=== PATIENT | female | born 1985 | race Caucasian/White ===

== ENCOUNTER → 2017-12-29 18:52 | Outpatient (CLI) | payer SELFPAY | PROVIDERS: Family Provider Family Medicine; PCP Family Medicine; Visit Provider Obstetrics & Gynecology | DX: Z34.80 Encounter for supervision of other normal pregnancy, unspecified trimester (principal) | CPT/HCPCS: 87086; 87088 ==

== ENCOUNTER → 2018-01-13 15:18 | Outpatient (CLI) | payer SELFPAY ==
[2018-01-13 16:26] LABS: Absolute Lymphocyte Count 1.51 X10^3/ul (0.83-4.51); Absolute Neutrophil Count 5.7 X10^3/uL (2.0-7.7); Basophil# 0.03 X10^3/uL; Basophil% 0.4 % (0-1); Eosinophil# 0.05 X10^3/uL; Eosinophils% 0.6 % (0-5); Hematocrit 38.8 % (37-47); Hemoglobin 13.5 g/dl (12.0-15.0); Lymphocyte # 1.51 X10^3/ul (4.0); Lymphocyte % 18.1 % (19-41); Mean Corp Hgb Conc 34.8 g/gl (32-36); Mean Corpuscular Hgb 30.3 pg (27.0-32.0); Mean Corpuscular Volume 87.2 fL (81-99); Mean Platelet Vol. 9.8 fl (6.2-12.0); Neutrophil # 5.72 X10^3/uL (2.7-7.7); Neutrophil % 68.8 % (47-70); Platelet Count 309 K/mm3 (150-450); RBC Distribution Width CV 11.6 % (11.6-14.6); RBC Distribution Width SD 36.5 fl (35.1-43.9); Red Blood Count 4.45 M/mm3 (4.2-5.4); White Blood Count 8.3 K/mm3 (4.4-11.0)
[2018-01-13 16:27] LABS: POSITIVE COUNT NO; POSITIVE DIFFERENTIAL NO; POSITIVE MORPHOLOGY NO
[2018-01-13 21:06] LABS: Chlamydia Trachomatis by PCR Negative (Negative); Neisserai gonorrhoeae by PCR Negative (Negative); Probe Check PASS; Sample Adequacy Control PASS; Specimen Processing Control PASS
[2018-01-14 03:45] LABS: Rapid Plasmin Reagin (RPR) NONREACTIVE (NONREACTIVE)
[2018-01-14 10:21] LABS: HIV - WCH Non-Reactive (Nonreactive); Rubella IgG 108.8 IU/mL
[2018-01-15 08:31] LABS: HEPATITIS B SURFACE AG Negative (Negative)
== END ==
PROVIDERS: Family Provider Family Medicine; PCP Family Medicine; Visit Provider Obstetrics & Gynecology
DX: Z34.90 Encounter for supervision of normal pregnancy, unspecified, unspecified trimester (principal)
CPT/HCPCS: 36415; 85025; 86592; 86703; 86762; 86850; 86900; 87340; 87491; 87591

== ENCOUNTER → 2018-04-07 08:34 | Outpatient (CLI) | payer SELFPAY ==
--- NOTE | 2018-04-07 08:44 | US_ITS ---
STUDY: SECOND AND THIRD TRIMESTER OBSTETRICAL ULTRASOUND REASON FOR EXAM: Female, 32 years old. Routine survey. LMP: November 07, 2017. TECHNIQUE: Transabdominal PRIOR ULTRASOUND: None. FINDINGS: There is a single intrauterine fetus. The fetus is in a breech presentation. There is demonstrated cardiac activity with a heart rate of 147 bpm. There is a normal amniotic fluid volume. The largest amniotic fluid pocket measures 6.6 cm. The amniotic fluid index (GREGORIO) is normal. The placenta is posterior in location and is not low lying. There are Grade 0 placental changes. The cervix measures 4.2 cm in length. The adnexal regions are not visualized. BIOMETRY: BPD: 4.9 cm: 20 weeks, 6 days HC: 18.4 cm: 20 weeks, 6 days AC: 16.2 cm: 21 weeks, 2 days FL: 3.7 cm: 22 weeks, 0 days CI: 74% FL/BPD: 77% FL/HC: FL/AC: 23% HC/AC: 1.14 age by current US: 21 weeks, 2 days. CARMINA by current US: August 16, 2018. Estimated weight: 425 grams, +/- 62 grams, 38 %. Age by LMP: 21 weeks, 4 days. CARMINA by LMP: August 14, 2018. ANATOMY: Gender: Male Cranium: Normal lateral ventricles. Normal choroid plexus. Normal cerebellum. Normal cisterna magna. Normal face, nose and lips. Chest: Normal 4-chamber heart. Abdomen/Pelvis: Normal diaphragm. Normal stomach. Normal abdominal wall. Normal cord insertion. Normal 3 vessel cord. Normal kidneys. Normal bladder. Spine: Normal cervical spine. Normal thoracic spine. Normal lumbar spine. Normal sacrum. Extremities: Normal bilateral upper extremities. Normal bilateral lower extremities. US/OB Anatomy Scan IMPRESSION: Single live intrauterine gestation with a mean gestational age of 21 weeks and 2 days. Electronically Signed: Lincoln Tucker MD at 14:56 EDT Tel [phone], Service support ,
== END ==
PROVIDERS: Family Provider Family Medicine; PCP Family Medicine; Visit Provider Obstetrics & Gynecology
DX: O32.1XX0 Maternal care for breech presentation, not applicable or unspecified (principal); Z3A.21 21 weeks gestation of pregnancy
CPT/HCPCS: 76805

== ENCOUNTER → 2018-07-20 13:19 | Outpatient (CLI) | payer SELFPAY ==
[2018-07-20 16:18] LABS: Group B Strep DNA By PCR Negative (Negative); Internal Control PASS; Probe Check PASS; Specimen Processing Control PASS
== END ==
PROVIDERS: Referring Provider Obstetrics & Gynecology; Visit Provider Obstetrics & Gynecology
DX: Z34.90 Encounter for supervision of normal pregnancy, unspecified, unspecified trimester (principal)
CPT/HCPCS: 87081; 87653

== ENCOUNTER 2018-08-07 01:40 | Inpatient (IN) | payer SELFPAY ==
[2018-08-07] MEDS: Lactated Ringers 1,000 ML 50 ML IV (02:00)
[2018-08-07 02:02] VITALS: BMI 30.7
[2018-08-07 02:25] LABS: Hematocrit 33.6 % (37-47); Hemoglobin 10.8 g/dl (12.0-15.0); Mean Corp Hgb Conc 32.1 g/gl (32-36); Mean Corpuscular Hgb 27.7 pg (27.0-32.0); Mean Corpuscular Volume 86.2 fL (81-99); Mean Platelet Vol. 10.2 fl (6.2-12.0); Platelet Count 295 K/mm3 (150-450); RBC Distribution Width CV 12.2 % (11.6-14.6); White Blood Count 8.5 K/mm3 (4.4-11.0)
[2018-08-07 02:26] LABS: Scan Indicated on CBC? Y/N NO
--- NOTE | 2018-08-07 02:29 | PCM.HP.OB ---
- Problem List (1) Abnormal glucose affecting Status: Acute Comment: Normal 3hr GTT-Scanned to chart. (2) Status: Acute Qualifiers: (3) History of miscarriage Status: Acute (4) Supervision of normal , antepartum Status: Acute Qualifiers: Comment: PRR CARMINA 09/02/18 Boy PC Margaret Som History Date of Admission: 08/07/18 Final CARMINA: 08/14/18 Gestational age: 39 Weeks and 0 Days History of this : This is a 33 year-old, at 39 weeks gestational age presents IAL. she is 7 cm dilated and denies any vb admits good fm and has had regular ctx for the last few hours. she has had an uncomplicated prengnacy. Surgical History: Surgical History (Last Reviewed 07/27/18 @ 09:51 by Carol Lubin) History of hysteroscopy Z98.890 Allergies coconut oil Allergy (Mild, Verified 08/07/18 02:03) rash ferrous fumarate [From Prenatabs FA] Allergy (Verified 08/07/18 02:03) Rash folic acid [From Prenatabs FA] Allergy (Verified 08/07/18 02:03) Rash vitamins with calcium no.78 [From Prenatabs FA] Allergy (Verified 08/07/18 02:03) Rash Smoking Status: Never smoker Alcohol: None Number of Fetus(es): 1 Heart Tracins moderate variability reactive no decels cat I tracing TOCO Analysis: q 2-3 History Past Pregnancies: Past Pregnancies Delivery Date Name GA/Weeks Outcome Route Weight Infant Gender Labor Length Anesthesia Delivery Location Provider FOB Margaret 39 uncomplicated F none [facility] Labs: Mom's Labs & Results 08/07/18 08/07/18 02:00 02:00 WBC 8.5 RBC 3.90 L Hgb 10.8 L Hct 33.6 L MCV 86.2 MCH 27.7 MCHC 32.1 RDW 12.2 RDW Differential 37.0 Plt Count 295 MPV 10.2 Blood Type Pending Antibody Screen Pending Course Did the patient receive Yes care? Labs Blood Type: O RH: POSITIVE RPR/VDRL/Syphilis Nonreactive Rubella status Immune HbSAg Negative Date Done: 01/13/18 Chlamydia Negative Gonorrhea Negative HIV/AIDS Non-Reactive Group B Strep: Negative Social History Hx Smoking No Smoking Status Never smoker How long have you used pt denies substances (years)? Expected Infant Delivery Method: Spontaneous Vaginal Review of Systems Constitutional: Denies: Fever, Malaise Eyes: Denies: Blurred vision, Vision Change HEENT: Denies: Head Aches, Visual Changes Cardiovascular: Denies: Chest Pain, Palpitations Respiratory: Denies: Cough, Shortness of Breath, Wheezing Gastrointestinal: Denies: Abdominal Pain, Diarrhea, Nausea, Vomiting Genitourinary: Denies: Dysuria, Hematuria Musculoskeletal: Denies: Joint Pain, Muscle pain Skin: Denies: Lesions, Rash Neurological: Denies: Blurred vision, Focal weakness, Headaches Psychiatric: Denies: Anxiety, Depression Endocrine: Denies: Heat/ Cold Intolerance Hematologic/ Lymphatic: Denies: Easy Bruising, Easy Bleeding Physical Exam General: Alert, Cooperative, No apparent distress HEENT: Atraumatic, Normocephalic. Negative for: Thyromegaly, Lymphadenopathy Cardiovascular: Regular rate Lungs: Normal air movement Abdomen: Soft, Non Tender, Gravid Neurological: Deep Tendon Reflexes 2+/4 and Symmetrical, Neuro grossly intact. Negative for: Clonus [employer]PER[employer]OR: Normal external genitalia. Negative for: Vulvar lesions Estimated gestational size: Appropriate for gestational size Presentation: Cephalic Cervix Dilation (cm): 7 Station: -1 Effacement (%): 80 Assessment/Plan All Active Problems (Last Reviewed 08/03/18 @ 09:28 by Staci Aranda) Abnormal glucose affecting (Acute) (Acute) History of miscarriage (Acute) Supervision of normal , antepartum (Acute) This is a 33 year-old, at 39 weeks gestational age presents IAL Patient presents IAL, plan expectant management for , pitocin/AROM clear fluid. Pain management: minimal intervention. GBS negative. Management of any complications: none I have reviewed the [facility] and made any clinically relevant updates.
--- NOTE | 2018-08-07 02:33 | HP.PCM_ITS ---
- Problem List (1) Abnormal glucose affecting Status: Acute Comment: Normal 3hr GTT-Scanned to chart. (2) Status: Acute Qualifiers: (3) History of miscarriage Status: Acute (4) Supervision of normal , antepartum Status: Acute Qualifiers: Comment: PRR CARMINA 09/02/18 Boy PC Margaret Som History Date of Admission: 08/07/18 Final CARMINA: 08/14/18 Gestational age: 39 Weeks and 0 Days History of this : This is a 33 year-old, at 39 weeks gestational age presents IAL. she is 7 cm dilated and denies any vb admits good fm and has had regular ctx for the last few hours. she has had an uncomplicated prengnacy. Surgical History: Surgical History (Last Reviewed 07/27/18 @ 09:51 by Carol Lubin) History of hysteroscopy Z98.890 Allergies coconut oil Allergy (Mild, Verified 08/07/18 02:03) rash ferrous fumarate [From Prenatabs FA] Allergy (Verified 08/07/18 02:03) Rash folic acid [From Prenatabs FA] Allergy (Verified 08/07/18 02:03) Rash vitamins with calcium no.78 [From Prenatabs FA] Allergy (Verified 08/07/18 02:03) Rash Smoking Status: Never smoker Alcohol: None Number of Fetus(es): 1 Heart Tracins moderate variability reactive no decels cat I tracing TOCO Analysis: q 2-3 History Past Pregnancies: Past Pregnancies Delivery Date Name GA/Weeks Outcome Route Weight Infant Gender Labor Length Anesthesia Delivery Location Provider FOB Margaret 39 uncomplicated F none [facility] Labs: Mom's Labs & Results 08/07/18 08/07/18 02:00 02:00 WBC 8.5 RBC 3.90 L Hgb 10.8 L Hct 33.6 L MCV 86.2 MCH 27.7 MCHC 32.1 RDW 12.2 RDW Differential 37.0 Plt Count 295 MPV 10.2 Blood Type Pending Antibody Screen Pending Course Did the patient receive Yes care? Labs Blood Type: O RH: POSITIVE RPR/VDRL/Syphilis Nonreactive Rubella status Immune HbSAg Negative Date Done: 01/13/18 Chlamydia Negative Gonorrhea Negative HIV/AIDS Non-Reactive Group B Strep: Negative Social History Hx Smoking No Smoking Status Never smoker How long have you used pt denies substances (years)? Expected Infant Delivery Method: Spontaneous Vaginal Review of Systems Constitutional: Denies: Fever, Malaise Eyes: Denies: Blurred vision, Vision Change HEENT: Denies: Head Aches, Visual Changes Cardiovascular: Denies: Chest Pain, Palpitations Respiratory: Denies: Cough, Shortness of Breath, Wheezing Gastrointestinal: Denies: Abdominal Pain, Diarrhea, Nausea, Vomiting Genitourinary: Denies: Dysuria, Hematuria Musculoskeletal: Denies: Joint Pain, Muscle pain Skin: Denies: Lesions, Rash Neurological: Denies: Blurred vision, Focal weakness, Headaches Psychiatric: Denies: Anxiety, Depression Endocrine: Denies: Heat/ Cold Intolerance Hematologic/ Lymphatic: Denies: Easy Bruising, Easy Bleeding Physical Exam General: Alert, Cooperative, No apparent distress HEENT: Atraumatic, Normocephalic. Negative for: Thyromegaly, Lymphadenopathy Cardiovascular: Regular rate Lungs: Normal air movement Abdomen: Soft, Non Tender, Gravid Neurological: Deep Tendon Reflexes 2+/4 and Symmetrical, Neuro grossly intact. Negative for: Clonus [employer]GER: Normal external genitalia. Negative for: Vulvar lesions Estimated gestational size: Appropriate for gestational size Presentation: Cephalic Cervix Dilation (cm): 7 Station: -1 Effacement (%): 80 Assessment/Plan All Active Problems (Last Reviewed 08/03/18 @ 09:28 by Staci Aranda) Abnormal glucose affecting (Acute) (Acute) History of miscarriage (Acute) Supervision of normal , antepartum (Acute) This is a 33 year-old, at 39 weeks gestational age presents IAL Patient presents IAL, plan expectant management for , pitocin/AROM clear fluid. Pain management: minimal intervention. GBS negative. Management of any complications: none I have reviewed the [facility] and made any clinically relevant updates.
[2018-08-07] MEDS: Ondansetron 4 MG/2 ML Vial IV (02:51)
[2018-08-07] MEDS: Oxytocin 30 units/NS 500 ml 30 UNITS/500 ML IV.SOLN 334 UNITS IV (03:43)
--- NOTE | 2018-08-07 03:55 | PCM.OB.VAG ---
- Problem List (1) Abnormal glucose affecting Status: Acute Comment: Normal 3hr GTT-Scanned to chart. (2) Status: Acute Qualifiers: (3) History of miscarriage Status: Acute (4) Supervision of normal , antepartum Status: Acute Qualifiers: Comment: PRR CARMINA 09/02/18 Boy PC Margaret Som Vaginal Delivery Maternal Presentation: Active Labor 33-year-old at 39 weeks presents in active labor Amniotic Membrane Rupture Type: Artificial Amniotic Fluid Description: Clear Final CARMINA: 08/14/18 Gestational age: 39 Weeks and 0 Days Date of Procedure: 08/07/18 Pre-Operative Diagnosis: In active labor Post-Operative Diagnosis: Same Surgery/ Procedure Performed: Spontaneous Vaginal Delivery Type of Anesthesia: Pudendal block with 1% lidocaine Description of Procedure: Patient began pushing and there was abrupt change in station from a +1-+5 station with one contraction and she delivered the head in the DAVID presentation. The head was delivered atraumatically and an audible pop was heard and then a loose nuchal cord x2 was identified and easily reduced over the 's head. The anterior and posterior shoulders delivered without complication followed by the rest of the infant and the infant was placed on the maternal abdomen. Delayed cord clamping was employed for approximately 60 seconds. Cord was clamped and cut and gentle traction was applied to the cord and the placenta delivered spontaneously immediately following it was noted to be intact with three-vessel cord. The perineum and vagina were inspected and noted to have no laceration. EBL was 200 cc. Patient and infant tolerated delivery well. Due to the audible pop heard after delivery of the head I recommended that the shoulders be checked and some crepitus was noted over the left side. It was felt that due to the quick descent there was a clavicular fracture induced by the normal labor forces with the patient pushing as noted by additional bruising along the left side of the infant's face that lined up with the location of the shoulder. It was discussed with the patient the liability claims adjuster would evaluate expectant management would be employed Presentation: DAVID Placental Delivery Description: Spontaneous Placenta Disposition: [facility] Cord Vessel Description: 3 Vessels Cord Entanglement: Around neck x 2, loose Estimated Blood Loss: 200 A gender: Male Episiotomy Description: None Laceration: None Medications given after delivery: IV Pitocin Complications: None
[2018-08-07] MEDS: Oxytocin 30 units/NS 500 ml 30 UNITS/500 ML IV.SOLN 167 UNITS IV (04:13)
[2018-08-07] MEDS: Naproxen 250 MG Tablet PO ×3 (04:56→21:31)
[2018-08-07] MEDS: 0.9% Saline Lock 10 ML Syringe IV (05:00)
[2018-08-07 07:45] VITALS: BP 103/60; PULSE 71; RESP 16; TEMP 36.8; O2SAT 99
[2018-08-07 12:00] VITALS: BP 98/62; PULSE 74; RESP 16; TEMP 37.1; O2SAT 97
[2018-08-07] MEDS: Senna/Docusate Sodium 1 Tablet PO (13:07)
[2018-08-07 16:20] VITALS: BP 102/62; PULSE 80; TEMP 37.2; O2SAT 95
[2018-08-07 19:43] VITALS: BP 102/57; PULSE 70; RESP 18; TEMP 37.1; O2SAT 98
[2018-08-08 00:14] VITALS: BP 95/52; PULSE 67; RESP 18; TEMP 36.8
[2018-08-08 04:00] VITALS: BP 95/55; PULSE 69; RESP 18; TEMP 36.8
--- NOTE | 2018-08-08 07:53 | PCM.PN.OB ---
Subjective: Doing well. No CP, SOB. Plans home today - Physical Exam General: Alert, Oriented x3 Abdomen: Soft, Non Tender, - - FF below U Vital Signs Temp Pulse Resp BP Pulse Ox 98.2 F 69 18 95/55 L 98 08/08/18 04:00 08/08/18 04:00 08/08/18 04:00 08/08/18 04:00 08/07/18 19:43 Oxygen Delivery Method Room Air Weight: 196 lb 6.91 oz Body Mass Index (BMI) 30.7 Intake and Output for Last 24 Hours 08/07/18 08/07/18 08/08/18 00:59 23:59 23:59 Intake Total Balance Medical Necessity - Tobacco Use Smoking Status: Never smoker Assessment/Plan All Active Problems (Last Reviewed 08/03/18 @ 09:28 by Staci Aranda) Abnormal glucose affecting (Acute) (Acute) History of miscarriage (Acute) Supervision of normal , antepartum (Acute) PPD #1: Routine care. . Pain controlled. Home today
--- NOTE | 2018-08-08 07:55 | PCM.DCVAG ---
Additional Instructions: If you experience any of the following, contact your healthcare provider. Bleeding that soaks a pad every hour for 2 hours Fever 100.4 or higher Unrelieved incision or abdominal pain Swelling, redness, discharge or bleeding from your incision or episiotomy site Your incision begins to separate Problems urinating (including inability to urinate or burning while urinating). Visual changes Severe headache Flu-like symptoms Pain or redness in one of both of your breasts Pain, warmth, tenderness or swelling in your legs, especially the calf area Frequent nausea and vomiting Symptoms of depression or anxiety If you experience any of the following, call 911 or go to the nearest Emergency Room. Chest pain Problems breathing Seizure activity Partial or complete paralysis of a body part, slurred speech, weakness or drooping of the face, or a sudden inability to walk or hold your balance Allergies/Adverse Reactions: Allergies coconut oil Allergy (Mild, Verified 08/07/18 02:03) rash ferrous fumarate [From Prenatabs FA] Allergy (Verified 08/07/18 02:03) Rash folic acid [From Prenatabs FA] Allergy (Verified 08/07/18 02:03) Rash vitamins with calcium no.78 [From Prenatabs FA] Allergy (Verified 08/07/18 02:03) Rash Primary Care Physician: Troy Mata MD [Primary Care Provider] - Test Results: Test results from this visit will be discussed in further detail at your follow-up appointment, if applicable.
--- NOTE | 2018-08-08 07:57 | DCINST_ITS ---
Additional Instructions: If you experience any of the following, contact your healthcare provider. * Bleeding that soaks a pad every hour for 2 hours * Fever 100.4 or higher * Unrelieved incision or abdominal pain * Swelling, redness, discharge or bleeding from your incision or episiotomy site * Your incision begins to separate * Problems urinating (including inability to urinate or burning while urinating). * Visual changes * Severe headache * Flu-like symptoms * Pain or redness in one of both of your breasts * Pain, warmth, tenderness or swelling in your legs, especially the calf area * Frequent nausea and vomiting * Symptoms of depression or anxiety If you experience any of the following, call 911 or go to the nearest Emergency Room. * Chest pain * Problems breathing * Seizure activity * Partial or complete paralysis of a body part, slurred speech, weakness or drooping of the face, or a sudden inability to walk or hold your balance Allergies/Adverse Reactions: Allergies coconut oil Allergy (Mild, Verified 08/07/18 02:03) rash ferrous fumarate [From Prenatabs FA] Allergy (Verified 08/07/18 02:03) Rash folic acid [From Prenatabs FA] Allergy (Verified 08/07/18 02:03) Rash vitamins with calcium no.78 [From Prenatabs FA] Allergy (Verified 08/07/18 02:03) Rash Primary Care Physician: Troy Mata MD [Primary Care Provider] - Test Results: Test results from this visit will be discussed in further detail at your follow- up appointment, if applicable.
[2018-08-08] MEDS: Naproxen 250 MG Tablet PO (08:02)
[2018-08-08 08:07] VITALS: BP 104/65; PULSE 81; RESP 16; TEMP 36.7
[2018-08-08] MEDS: Senna/Docusate Sodium 1 Tablet PO (09:22)
[2018-08-08 14:20] VITALS: BP 103/50; PULSE 76; RESP 16; TEMP 36.8
== END 2018-08-08 16:30 | disposition home or self-care (01) | DRG 807 ==
PROVIDERS: Admitting Provider Obstetrics & Gynecology; Family Provider Family Medicine; PCP Family Medicine; Referring Provider Obstetrics & Gynecology; Visit Provider Obstetrics & Gynecology
DX: O26.23 Pregnancy care for patient with recurrent pregnancy loss, third trimester (principal); Z37.0 Single live birth; O75.89 Other specified complications of labor and delivery; O69.81X0 Labor and delivery complicated by cord around neck, without compression, not applicable or unspecified; Z3A.39 39 weeks gestation of pregnancy
CPT/HCPCS: 59025; 59050; 85027; 86850; 86900; 99218; J7120; A4216; G0378; J2405

== ENCOUNTER → 2020-08-28 | Outpatient (CLI) | payer SELFPAY ==
[2020-08-28 09:38] VITALS: BMI 28.7
[2020-09-03 17:29] LABS: HPV APTIMA, High Risk Negative (Negative)
== END | disposition home or self-care (01) ==
LOC: LABSPEC 13:27
PROVIDERS: PCP Internal Medicine; Referring Provider Nurse Practitioner Women's Health; Visit Provider Nurse Practitioner Women's Health
DX: Z12.4 Encounter for screening for malignant neoplasm of cervix (principal)
CPT/HCPCS: 87624; 88175; G0145

== ENCOUNTER → 2020-09-04 11:06 | Outpatient (CLI) | payer SELFPAY ==
[2020-08-28 09:38] VITALS: BMI 28.7
--- NOTE | 2020-09-04 11:09 | US_ITS ---
STUDY: ULTRASOUND OF THE FEMALE PELVIS - COMPLETE REASON FOR EXAM: Female, 35 years old. AUB- SPOTTING BETWEEN PERIODS, GENERALIZE PELVIC PAIN LMP: 08/18/2020. TECHNIQUE: Transabdominal and Transvaginal TECHNICAL QUALITY: Adequate. COMPARISON: Comparison is made with prior study dated 04/07/2018. FINDINGS: The uterus is anteverted and is in a midline position. The uterus measures 8.2 cm x 6.1 cm x 4.7 cm. Normal uterine cervix. The endometrium measures 12 mm in thickness, and is heterogeneous (striated). There is no demonstrated endometrial mass. There is no demonstrated myometrial mass. I.U.D. - The patient does not have an I.U.D. The right ovary is visualized. The right ovary measures 4.2 cm x 2.47 x 2.7 cm. There is a 2.2 cm x 2.3 cm x 2.2 cm complex cyst in the right ovary. There is no visualized right adnexal mass or complex lesion. There is increased vascularity to the right ovary. Follow-up is recommended. The left ovary is visualized. The left ovary measures 2.7 cm x 2.2 cm x 1.7 cm. There is no left ovarian cyst or ovarian mass. There is no visualized left adnexal mass or complex lesion. There is normal arterial and normal venous vascularity. There is minimal fluid in the cul-de-sac. The pre void volume of the bladder was 425 ml. US/Pelvic (Non ) IMPRESSION: 2.2 cm x 2.3 cm x 2.2 cm complex cyst in the right ovary. Increased peripheral vascularity. Follow-up sonogram is recommended. Electronically Signed: Lincoln Tucker, at 13:14 EST , Service support ,
--- NOTE | 2020-09-04 11:09 | US_ITS ---
STUDY: ULTRASOUND OF THE FEMALE PELVIS - COMPLETE REASON FOR EXAM: Female, 35 years old. AUB- SPOTTING BETWEEN PERIODS, GENERALIZE PELVIC PAIN LMP: 08/18/2020. TECHNIQUE: Transabdominal and Transvaginal TECHNICAL QUALITY: Adequate. COMPARISON: Comparison is made with prior study dated 04/07/2018. FINDINGS: The uterus is anteverted and is in a midline position. The uterus measures 8.2 cm x 6.1 cm x 4.7 cm. Normal uterine cervix. The endometrium measures 12 mm in thickness, and is heterogeneous (striated). There is no demonstrated endometrial mass. There is no demonstrated myometrial mass. I.U.D. - The patient does not have an I.U.D. The right ovary is visualized. The right ovary measures 4.2 cm x 2.47 x 2.7 cm. There is a 2.2 cm x 2.3 cm x 2.2 cm complex cyst in the right ovary. There is no visualized right adnexal mass or complex lesion. There is increased vascularity to the right ovary. Follow-up is recommended. The left ovary is visualized. The left ovary measures 2.7 cm x 2.2 cm x 1.7 cm. There is no left ovarian cyst or ovarian mass. There is no visualized left adnexal mass or complex lesion. There is normal arterial and normal venous vascularity. There is minimal fluid in the cul-de-sac. The pre void volume of the bladder was 425 ml. US/Transvaginal Non- IMPRESSION: 2.2 cm x 2.3 cm x 2.2 cm complex cyst in the right ovary. Increased peripheral vascularity. Follow-up sonogram is recommended. Electronically Signed: Lincoln Tucker, at 13:14 EST , Service support ,
== END ==
PROVIDERS: PCP Internal Medicine; Referring Provider Nurse Practitioner Women's Health; Visit Provider Nurse Practitioner Women's Health
DX: N93.9 Abnormal uterine and vaginal bleeding, unspecified (principal); R10.2 Pelvic and perineal pain
CPT/HCPCS: 76830; 76856; 93976

== ENCOUNTER → 2020-10-30 10:01 | Outpatient (CLI) | payer SELFPAY ==
[2020-08-28 09:38] VITALS: BMI 28.7
--- NOTE | 2020-10-30 10:08 | US_ITS ---
STUDY: ULTRASOUND OF THE FEMALE PELVIS - COMPLETE REASON FOR EXAM: Female, 35 years old. F/U RT OVARIAN CYST LMP: 10/16/2020. TECHNIQUE: Transabdominal and Transvaginal TECHNICAL QUALITY: Adequate. COMPARISON: Comparison is made with prior study dated 09/04/2020. FINDINGS: The uterus is anteflexed and is tilted to the left side of the pelvis. The uterus measures 6.7 cm x 5.5 cm x 3.2 cm. Normal uterine cervix. The endometrium measures 6 mm in thickness, and is hyperechoic. There is no demonstrated endometrial mass. There is no demonstrated myometrial mass. I.U.D. - The patient does not have an I.U.D. The right ovary is visualized. The right ovary measures 4 cm x 2.2 cm x 1.9 cm. Small follicles are seen within the ovary. There is no visualized right adnexal mass or complex lesion. There is normal arterial and normal venous vascularity. The left ovary is visualized. The left ovary measures 3.5 cm x 2 cm x 1.6 cm. Small follicles are seen in the left ovary. There is no visualized left adnexal mass or complex lesion. There is normal arterial and normal venous vascularity. There is no fluid in the cul-de-sac. The pre void volume of the bladder was 439 ml. Polycystic ovary disease: No. US/Pelvic (Non ) IMPRESSION: Small follicles are seen in both ovaries. Electronically Signed: Lincoln Tucker MD at 11:09 EST , Service support ,
--- NOTE | 2020-10-30 10:08 | US_ITS ---
STUDY: ULTRASOUND OF THE FEMALE PELVIS - COMPLETE REASON FOR EXAM: Female, 35 years old. F/U RT OVARIAN CYST LMP: 10/16/2020. TECHNIQUE: Transabdominal and Transvaginal TECHNICAL QUALITY: Adequate. COMPARISON: Comparison is made with prior study dated 09/04/2020. FINDINGS: The uterus is anteflexed and is tilted to the left side of the pelvis. The uterus measures 6.7 cm x 5.5 cm x 3.2 cm. Normal uterine cervix. The endometrium measures 6 mm in thickness, and is hyperechoic. There is no demonstrated endometrial mass. There is no demonstrated myometrial mass. I.U.D. - The patient does not have an I.U.D. The right ovary is visualized. The right ovary measures 4 cm x 2.2 cm x 1.9 cm. Small follicles are seen within the ovary. There is no visualized right adnexal mass or complex lesion. There is normal arterial and normal venous vascularity. The left ovary is visualized. The left ovary measures 3.5 cm x 2 cm x 1.6 cm. Small follicles are seen in the left ovary. There is no visualized left adnexal mass or complex lesion. There is normal arterial and normal venous vascularity. There is no fluid in the cul-de-sac. The pre void volume of the bladder was 439 ml. Polycystic ovary disease: No. US/Transvaginal Non- IMPRESSION: Small follicles are seen in both ovaries. Electronically Signed: Lincoln Tucker MD at 11:09 EST , Service support ,
== END ==
PROVIDERS: PCP Internal Medicine; Referring Provider Nurse Practitioner Women's Health; Visit Provider Nurse Practitioner Women's Health
DX: N83.291 Other ovarian cyst, right side (principal)
CPT/HCPCS: 76830; 76856

== ENCOUNTER → 2021-09-12 15:51 | Outpatient (CLI) | payer SELFPAY ==
--- NOTE | 2021-09-12 15:57 | VDLE_ITS ---
Reason For Study: Pain RIGHT LEFT CFV is compressible, spontaneous, phasic, GSV is normal. competent and demonstrates normal CFV is compressible, spontaneous, phasic, augmentation. competent, and demonstrates normal Procedure augmentation. This is a venous duplex using B-mode, color FV is compressible, spontaneous, phasic, flow and spectral Doppler. competent and demonstrates normal Exam performed in department. augmentation. A preliminary report was called and/or faxed POP V is compressible, spontaneous, phasic, to Ricardo. competent and demonstrates normal augmentation. T/P Trunk is compressible. PTV is compressible. LT PerV is compressible. VL/Venous Duplex US, Unilateral Interpretation Summary There is no evidence of left lower extremity deep vein thrombosis. Left great s aphenous vein appears patent and compressible segmentally. Normal flow patterns right common femoral vein Ordering Physician: Dalila Silva Referring Physician: Maryjo Langston Performed By: Liv Martinez RVT
== END ==
PROVIDERS: PCP Internal Medicine; Referring Provider Obstetrics & Gynecology; Visit Provider Obstetrics & Gynecology
DX: M79.662 Pain in left lower leg (principal)
CPT/HCPCS: 93971

== ENCOUNTER → 2024-09-19 | Outpatient (CLI) | payer SELFPAY ==
[2024-09-28 11:07] LABS: HPV APTIMA, High Risk Negative (Negative)
== END | disposition home or self-care (01) ==
LOC: LABSPEC 16:42
PROVIDERS: Referring Provider Obstetrics & Gynecology; Visit Provider Obstetrics & Gynecology
DX: Z12.4 Encounter for screening for malignant neoplasm of cervix (principal)
CPT/HCPCS: 87624; 88175; G0145